=== PATIENT | male | born 1980 | race Caucasian/White ===

== ENCOUNTER 2021-07-18 23:02 | Emergency (ER) | payer MEDICAID ==
[~2021-07-18] VITALS: Ht 162.6 cm; Wt 60.0 kg
[2021-07-18 23:14] VITALS: BP 119/76
[2021-07-18] MEDS ORDERED: KETOROLAC 60MG/2ML VIAL IM ONE (23:45)
[2021-07-18] MEDS ORDERED: DIAZEPAM 2 MG TABLET PO ONE (23:45)
[2021-07-18] MEDS ORDERED: PREDNISONE 20MG TABLET PO ONE (23:45)
[2021-07-19] MEDS ORDERED: IBUP-2030 MT (01:52)
[2021-07-19] MEDS ORDERED: CYCL5TAB MT (01:52)
== END 2021-07-19 02:36 | disposition home or self-care (01) ==
LOC: ER 23:02
DX: S39.012A Strain of muscle, fascia and tendon of lower back, initial encounter (principal); X58.XXXA Exposure to other specified factors, initial encounter; Y93.89 Activity, other specified; Y92.89 Other specified places as the place of occurrence of the external cause; Y99.8 Other external cause status
CPT/HCPCS: 72100; 93005; 96372; 99283; J1885; J7512

== ENCOUNTER 2021-08-24 18:17 | Inpatient (IN) | payer MEDICAID, OTHER ==
[~2021-08-24] VITALS: Ht 165.1 cm; Wt 50.3 kg
[~2021-08-24 18:17] MED LIST: CYCL5TAB MT; IBUP-2030 MT
[2021-08-24] MEDS ORDERED: ACETAMINOPHEN 325MG TABLET PO STA (20:28)
[2021-08-24 21:26] LABS: BASOPHILS % 0.6 % (0.0-2.0); EOSINOPHILS % 1.5 % (0.0-5.0); LYMPHOCYTES % 32.7 % (20.0-50.0); MEAN CORPUSCULAR HEMOGLOBIN 31.5 pg (28.0-32.0); MEAN CORPUSCULAR VOLUME 90.8 fL (80.0-94.0); MEAN PLATELET VOLUME 8.2 fl (7.4-10.4); NEUTROPHILS % 59.2 % (40.0-76.0); PLATELET 131 x1000/uL (130-400); RED BLOOD CELL COUNT 2.22 mill/uL (4.7-6.1); RED CELL DISTRIBUTION WIDTH 14.4 % (11.6-14.6)
[2021-08-24 21:31] LABS: HEMATOCRIT. 20.2 % (42.0-52.0)
[2021-08-24 21:32] LABS: CHLORIDE 94 mEq/L (98-107)
[2021-08-24 22:22] LABS: CLARITY URINE CLEAR (CLEAR); COLOR URINE YELLOW (YELLOW); KETONES URINE NEGATIVE (NEGATIVE); LEUKOCYTE ESTERASE URINE 1+ (NEGATIVE); NITRITE URINE NEGATIVE (NEGATIVE); OCCULT BLOOD URINE 2+ (NEGATIVE); PROTEIN URINE 2+ (NEGATIVE); SPECIFIC GRAVITY URINE 1.011 (1.005-1.030); UROBILINOGEN URINE 0.2 E.U./dL (0.2-1.0)
[2021-08-25] VITALS (23 sets, daily range): BP systolic 99–121; BP diastolic 52–76
[2021-08-25] MEDS: ONDANSETRON HCL 4MG/2ML INJ IV PRN ×3 (04:17→21:55)
[2021-08-25] MEDS: SEVELAMER CARBONATE 800 MG TABLET PO SCH ×3 (06:34→18:23)
[2021-08-25] MEDS: FOLIC ACID/VITAMIN B COMP W-C TABLET PO SCH (08:39)
[2021-08-25] MEDS ORDERED: MORPHINE SULFATE 2 MG/ML CPJ (NOT FOR IM USE) IV PRN (09:15)
[2021-08-25] MEDS ORDERED: LORAZEPAM 2MG/ML CPJ IV PRN (09:15)
[2021-08-25] MEDS ORDERED: NALOXONE HCL 0.4MG/ML VIAL IV PRN (09:30)
[2021-08-25 09:49] LABS: BASOPHILS % 0.5 % (0.0-2.0); EOSINOPHILS % 1.5 % (0.0-5.0); HEMATOCRIT. 21.7 % (42.0-52.0); HEMOGLOBIN. 7.1 g/dL (14.0-18.0); LYMPHOCYTES % 35.8 % (20.0-50.0); MEAN CORPUSCULAR HEMOGLOBIN 31.1 pg (28.0-32.0); MEAN CORPUSCULAR VOLUME 94.3 fL (80.0-94.0); MEAN PLATELET VOLUME 8.1 fl (7.4-10.4); MONOCYTES % 6.1 % (2.0-8.0); NEUTROPHILS % 56.1 % (40.0-76.0); PLATELET 134 x1000/uL (130-400)
[2021-08-25] MEDS ORDERED: CEFAZOLIN 1000MG PREMIX 50 ML IV ONE ×2 (10:00→11:48)
[2021-08-25] MEDS ORDERED: MANNITOL 12.5G (25%) VIAL 50ML IV SCH (10:00)
[2021-08-25 10:02] LABS: CREATINE KINASE 63 IU/L (39-308)
[2021-08-25 10:39] LABS: PHOSPHORUS 11.3 mg/dL (2.5-4.9)
[2021-08-25] MEDS ORDERED: LIDOCAINE HCL 1% 30ML VIAL (10MG/ML) ONE (11:49)
[2021-08-25] MEDS ORDERED: HEPARIN 1000 UNITS/ML 10ML ONE (11:49)
[2021-08-25 12:02] LABS: INR 1.3; PARTIAL THROMBOPLASTIN TIME 26.8 sec (23.4-31.0); PROTHROMBIN TIME 13.4 sec (9.6-11.0)
[2021-08-25 12:26] LABS: TOTAL IRON BINDING CAPACITY 163 ug/dL (250-450)
[2021-08-25 13:30] LABS: HEPATITIS B SURFACE AB 7.1 mIU/mL
[2021-08-25] MEDS ORDERED: FENTANYL CITRATE/PF 50MCG/ML 2ML VIAL ONE (13:35)
[2021-08-25 13:41] LABS: HEPATITIS B SURFACE ANTIGEN NEGATIVE
[2021-08-25] MEDS ORDERED: FENTANYL CITRATE/PF 50MCG/ML 2ML VIAL IV ONE (14:00)
[2021-08-25] MEDS: HYDROCODONE/ACETAMINOPHEN 5/325MG TABLET PO PRN (15:58)
[2021-08-25 21:14] LABS: HEMATOCRIT 23.1 % (42.0-52.0); HEMOGLOBIN 8.1 g/dL (14.0-18.0)
[2021-08-25 21:36] LABS: INR 1.2; PROTHROMBIN TIME 12.7 sec (9.6-11.0)
[2021-08-26] VITALS (24 sets, daily range): BP systolic 96–121; BP diastolic 54–72
[2021-08-26 06:24] LABS: BASOPHILS % 0.6 % (0.0-2.0); EOSINOPHILS % 1.1 % (0.0-5.0); HEMATOCRIT. 22.3 % (42.0-52.0); HEMOGLOBIN. 7.7 g/dL (14.0-18.0); LYMPHOCYTES % 33.4 % (20.0-50.0); MEAN CORPUSCULAR HEMOGLOBIN 30.4 pg (28.0-32.0); MEAN CORPUSCULAR VOLUME 87.4 fL (80.0-94.0); MEAN PLATELET VOLUME 7.6 fl (7.4-10.4); MONOCYTES % 5.8 % (2.0-8.0); NEUTROPHILS % 59.1 % (40.0-76.0); PLATELET 118 x1000/uL (130-400); RED BLOOD CELL COUNT 2.55 mill/uL (4.7-6.1); RED CELL DISTRIBUTION WIDTH 14.9 % (11.6-14.6)
[2021-08-26] MEDS: SEVELAMER CARBONATE 800 MG TABLET PO SCH ×3 (07:07→17:27)
[2021-08-26] MEDS: ONDANSETRON HCL 4MG/2ML INJ IV PRN ×3 (08:26→21:04)
[2021-08-26] MEDS: FOLIC ACID/VITAMIN B COMP W-C TABLET PO SCH (08:26)
[2021-08-26 09:11] LABS: ANTI-NUCLEAR ANTIBODIES DIRECT Negative (Negative)
[2021-08-26] MEDS ORDERED: FENTANYL CITRATE/PF 50MCG/ML 2ML VIAL ONE (09:17)
[2021-08-26] MEDS ORDERED: LIDOCAINE HCL 1% 30ML VIAL (10MG/ML) ONE (09:18)
[2021-08-26] MEDS ORDERED: SODIUM BICARBONATE 4% (2.4MEQ) 5ML VIAL IV ONE (09:18)
[2021-08-26] MEDS ORDERED: FENTANYL CITRATE/PF 50MCG/ML 2ML VIAL IV ONE (10:15)
[2021-08-26] MEDS ORDERED: DIATR MEGLU/DIATRIZOATE SOLN 30ML PO SCH (13:00)
[2021-08-26] MEDS: HYDROCODONE/ACETAMINOPHEN 5/325MG TABLET PO PRN (13:12)
[2021-08-26 16:21] LABS: HEMATOCRIT 20.2 % (42.0-52.0)
[2021-08-27 00:02] VITALS: BP 100/60
[2021-08-27 04:00] VITALS: BP 95/60
[2021-08-27] MEDS: SEVELAMER CARBONATE 800 MG TABLET PO SCH ×3 (06:25→17:58)
[2021-08-27 06:43] LABS: BASOPHILS % 0.8 % (0.0-2.0); EOSINOPHILS % 1.7 % (0.0-5.0); HEMATOCRIT. 22.3 % (42.0-52.0); HEMOGLOBIN. 7.8 g/dL (14.0-18.0); LYMPHOCYTES % 32.3 % (20.0-50.0); MEAN CORPUSCULAR HEMOGLOBIN 30.5 pg (28.0-32.0); MEAN CORPUSCULAR VOLUME 86.8 fL (80.0-94.0); MEAN PLATELET VOLUME 8.1 fl (7.4-10.4); MONOCYTES % 6.9 % (2.0-8.0); NEUTROPHILS % 58.3 % (40.0-76.0); PLATELET 106 x1000/uL (130-400); RED BLOOD CELL COUNT 2.56 mill/uL (4.7-6.1); RED CELL DISTRIBUTION WIDTH 14.7 % (11.6-14.6)
[2021-08-27 08:00] VITALS: BP 102/55
[2021-08-27] MEDS: FOLIC ACID/VITAMIN B COMP W-C TABLET PO SCH (09:06)
[2021-08-27 12:00] VITALS: BP 109/64
[2021-08-27 13:07] LABS: ANTI-MYELOPEROXIDASE AB < 9.0 U/mL (0.0-9.0); ANTI-PROTEINASE 3 ABS < 3.5 U/mL (0.0-3.5); ATYPICAL P-ANCA <1:20 titer (Neg:<1:20); CYTOPLASMIC C-ANCA <1:20 titer (Neg:<1:20); PERINUCLEAR P-ANCA <1:20 titer (Neg:<1:20)
[2021-08-27 16:00] VITALS: BP 103/57
[2021-08-27 20:00] VITALS: BP 104/64
[2021-08-27] MEDS: EPOETIN ALFA-EPBX 10,000 UNIT/ML VIAL SUBCUT SCH (21:00)
[2021-08-27] MEDS ORDERED: EPOETIN ALFA 10000UNITS/ML VIAL SUBCUT SCH (21:00)
[2021-08-28] VITALS: BP 98/61
[2021-08-28 04:00] VITALS: BP 103/68
[2021-08-28] MEDS: SEVELAMER CARBONATE 800 MG TABLET PO SCH ×3 (06:38→17:35)
[2021-08-28 08:00] VITALS: BP 100/59
[2021-08-28] MEDS: FOLIC ACID/VITAMIN B COMP W-C TABLET PO SCH (08:26)
[2021-08-28] MEDS: ONDANSETRON HCL 4MG/2ML INJ IV PRN (09:11)
[2021-08-28 09:37] LABS: BASOPHILS % 0.8 % (0.0-2.0); EOSINOPHILS % 2.3 % (0.0-5.0); HEMATOCRIT. 23.2 % (42.0-52.0); LYMPHOCYTES % 28.8 % (20.0-50.0); MEAN CORPUSCULAR HEMOGLOBIN 30.3 pg (28.0-32.0); MEAN CORPUSCULAR VOLUME 87.7 fL (80.0-94.0); MONOCYTES % 7.3 % (2.0-8.0); NEUTROPHILS % 60.8 % (40.0-76.0); PLATELET 107 x1000/uL (130-400); RED BLOOD CELL COUNT 2.64 mill/uL (4.7-6.1); RED CELL DISTRIBUTION WIDTH 14.5 % (11.6-14.6)
[2021-08-28 12:00] VITALS: BP 119/73
[2021-08-28] MEDS: HYDROCODONE/ACETAMINOPHEN 5/325MG TABLET PO PRN (13:56)
[2021-08-28 16:00] VITALS: BP 100/51
[2021-08-28 17:48] LABS: HEMATOCRIT 23.1 % (42.0-52.0); HEMOGLOBIN 8.1 g/dL (14.0-18.0)
[2021-08-28 19:58] LABS: HEMATOCRIT 23.9 % (42.0-52.0); HEMOGLOBIN 8.3 g/dL (14.0-18.0)
[2021-08-28 20:00] VITALS: BP 105/63
[2021-08-29] VITALS: BP 111/63
[2021-08-29 04:00] VITALS: BP 115/60
[2021-08-29] MEDS: SEVELAMER CARBONATE 800 MG TABLET PO SCH ×3 (06:12→17:10)
[2021-08-29 06:56] LABS: EOSINOPHILS % 2.2 % (0.0-5.0); HEMATOCRIT. 22.1 % (42.0-52.0); HEMOGLOBIN. 7.8 g/dL (14.0-18.0); LYMPHOCYTES % 29.4 % (20.0-50.0); MEAN CORPUSCULAR HEMOGLOBIN 30.7 pg (28.0-32.0); MEAN CORPUSCULAR VOLUME 87.4 fL (80.0-94.0); MEAN PLATELET VOLUME 8.1 fl (7.4-10.4); MONOCYTES % 7.7 % (2.0-8.0); NEUTROPHILS % 59.7 % (40.0-76.0); PLATELET 111 x1000/uL (130-400); RED BLOOD CELL COUNT 2.52 mill/uL (4.7-6.1); RED CELL DISTRIBUTION WIDTH 14.3 % (11.6-14.6)
[2021-08-29 08:08] VITALS: BP 97/55
[2021-08-29] MEDS: FOLIC ACID/VITAMIN B COMP W-C TABLET PO SCH (09:51)
[2021-08-29 12:12] VITALS: BP 97/69
[2021-08-29] MEDS: ONDANSETRON HCL 4MG/2ML INJ IV PRN (13:22)
[2021-08-29 16:27] VITALS: BP 97/55
[2021-08-29 17:05] LABS: HEMATOCRIT 21.5 % (42.0-52.0); HEMOGLOBIN 7.4 g/dL (14.0-18.0)
[2021-08-29 20:00] VITALS: BP 90/51
[2021-08-29] MEDS: EPOETIN ALFA-EPBX 10,000 UNIT/ML VIAL SUBCUT SCH (21:29)
[2021-08-30] VITALS: BP 94/56
[2021-08-30 04:00] VITALS: BP 103/53
[2021-08-30] MEDS: SEVELAMER CARBONATE 800 MG TABLET PO SCH ×3 (06:11→16:55)
[2021-08-30] MEDS: FOLIC ACID/VITAMIN B COMP W-C TABLET PO SCH (08:18)
[2021-08-30 08:23] VITALS: BP 94/54
[2021-08-30 12:00] VITALS: BP 100/60
[2021-08-30 16:00] VITALS: BP 104/67
[2021-08-30 16:15] LABS: HEMATOCRIT 22.8 % (42.0-52.0)
[2021-08-30 20:00] VITALS: BP 102/59
[2021-08-31] VITALS: BP 100/60
[2021-08-31 04:00] VITALS: BP 95/55
[2021-08-31 06:10] LABS: BASOPHILS % 0.7 % (0.0-2.0); EOSINOPHILS % 1.9 % (0.0-5.0); HEMATOCRIT. 21.3 % (42.0-52.0); HEMOGLOBIN. 7.5 g/dL (14.0-18.0); LYMPHOCYTES % 34.5 % (20.0-50.0); MEAN CORPUSCULAR VOLUME 88.1 fL (80.0-94.0); MEAN PLATELET VOLUME 7.9 fl (7.4-10.4); MONOCYTES % 6.6 % (2.0-8.0); NEUTROPHILS % 56.3 % (40.0-76.0); PLATELET 111 x1000/uL (130-400); RED BLOOD CELL COUNT 2.42 mill/uL (4.7-6.1); RED CELL DISTRIBUTION WIDTH 14.1 % (11.6-14.6)
[2021-08-31 06:11] LABS: A/G RATIO 0.8 (0.7-1.7); ALBUMIN 3.3 g/dL (2.9-4.4); ALPHA-1-GLOBULIN 0.4 g/dL (0.0-0.4); ALPHA-2-GLOBULIN 2.8 g/dL (0.4-1.0); BETA GLOBULIN 0.7 g/dL (0.7-1.3); GAMMA GLOBULINS 0.3 g/dL (0.4-1.8); GLOBULIN TOTAL 4.2 g/dL (2.2-3.9); M-SPIKE 2.4 g/dL (Not Observed); TOTAL PROTEIN SERUM 7.5 g/dL (6.0-8.5)
[2021-08-31] MEDS: SEVELAMER CARBONATE 800 MG TABLET PO SCH ×3 (06:19→16:50)
[2021-08-31] MEDS ORDERED: LIDOCAINE HCL 1% 30ML VIAL (10MG/ML) ONE (07:26)
[2021-08-31] MEDS ORDERED: ACETAMINOPHEN 500MG TABLET ONE (07:33)
[2021-08-31] MEDS ORDERED: MIDAZOLAM HCL 2 MG/2 ML VIAL ONE (07:51)
[2021-08-31] MEDS ORDERED: LIDOCAINE HCL 1% 10 MG/ML 10ML VIAL ONE (07:52)
[2021-08-31] MEDS ORDERED: PROPOFOL 200MG/20ML VIAL IV ONE (07:52)
[2021-08-31] MEDS ORDERED: ONDANSETRON HCL 4MG/2ML INJ ONE (07:53)
[2021-08-31] MEDS ORDERED: METOCLOPRAMIDE HCL 10MG/2ML VIAL ONE (07:53)
[2021-08-31] MEDS ORDERED: FENTANYL CITRATE/PF 50MCG/ML 2ML VIAL ONE (07:55)
[2021-08-31] MEDS: FOLIC ACID/VITAMIN B COMP W-C TABLET PO SCH (09:00)
[2021-08-31 12:00] VITALS: BP 100/61
[2021-08-31 16:00] VITALS: BP 95/53
[2021-08-31 20:00] VITALS: BP 90/49
[2021-09-01] VITALS: BP 94/56
[2021-09-01 04:00] VITALS: BP 89/50
[2021-09-01] MEDS: SEVELAMER CARBONATE 800 MG TABLET PO SCH ×2 (07:10→13:43)
[2021-09-01 08:00] VITALS: BP 92/56
[2021-09-01] MEDS: FOLIC ACID/VITAMIN B COMP W-C TABLET PO SCH (09:00)
[2021-09-01] MEDS ORDERED: KETAMINE HCL 50 MG/ML 10ML ONE (11:07)
[2021-09-01] MEDS ORDERED: SEVE800T8 PO (11:08)
[2021-09-01] MEDS ORDERED: LIDOCAINE HCL/PF 1% 10 MG/ML 5ML VIAL ONE (11:10)
[2021-09-01] MEDS ORDERED: MIDAZOLAM HCL 2 MG/2 ML VIAL ONE (11:10)
[2021-09-01] MEDS ORDERED: PROPOFOL 200MG/20ML VIAL IV ONE (11:10)
[2021-09-01 15:32] VITALS: BP 92/56
[2021-09-01] MEDS ORDERED: INFLUENZA VACCINE 05/PF 0.5 ML SYRINGE IM ONE (16:30)
== END 2021-09-01 16:30 | disposition home or self-care (01) | DRG 470 ==
LOC: ER 18:17 → 7EST 23:27 → EDBEDREQTM 23:37 → EDBEDREQ 23:37 → ENRESERV 08-25 00:13 → 7EST 08-25 22:37
PROVIDERS: ADMIT Internal Medicine; ATTEND Internal Medicine
PROC: 30233N1 Transfusion of Nonautologous Red Blood Cells into Peripheral Vein, Percutaneous Approach (ICD-10-PCS; principal; 2021-08-25)
PROC: 5A1D70Z Performance of Urinary Filtration, Intermittent, Less than 6 Hours Per Day (ICD-10-PCS; 2021-08-25)
PROC: 0JH63XZ Insertion of Tunneled Vascular Access Device into Chest Subcutaneous Tissue and Fascia, Percutaneous Approach (ICD-10-PCS; 2021-08-25)
PROC: 02H633Z Insertion of Infusion Device into Right Atrium, Percutaneous Approach (ICD-10-PCS; 2021-08-25)
PROC: B548ZZA Ultrasonography of Superior Vena Cava, Guidance (ICD-10-PCS; 2021-08-25)
PROC: B5181ZA Fluoroscopy of Superior Vena Cava using Low Osmolar Contrast, Guidance (ICD-10-PCS; 2021-08-25)
PROC: 0TB13ZX Excision of Left Kidney, Percutaneous Approach, Diagnostic (ICD-10-PCS; 2021-08-26)
PROC: 5A1D70Z Performance of Urinary Filtration, Intermittent, Less than 6 Hours Per Day (ICD-10-PCS; 2021-08-28)
PROC: 5A1D70Z Performance of Urinary Filtration, Intermittent, Less than 6 Hours Per Day (ICD-10-PCS; 2021-08-31)
PROC: 07DQ3ZZ Extraction of Sternum Bone Marrow, Percutaneous Approach (ICD-10-PCS; 2021-08-31)
PROC: 07DR3ZX Extraction of Iliac Bone Marrow, Percutaneous Approach, Diagnostic (ICD-10-PCS; 2021-09-01)
PROC: 079T3ZX Drainage of Bone Marrow, Percutaneous Approach, Diagnostic (ICD-10-PCS; 2021-09-01)
DX: I12.0 Hypertensive chronic kidney disease with stage 5 chronic kidney disease or end stage renal disease (principal); N17.9 Acute kidney failure, unspecified; E44.0 Moderate protein-calorie malnutrition; D63.1 Anemia in chronic kidney disease; E83.39 Other disorders of phosphorus metabolism; E87.1 Hypo-osmolality and hyponatremia; E11.22 Type 2 diabetes mellitus with diabetic chronic kidney disease; C90.00 Multiple myeloma not having achieved remission; Z20.822 Contact with and (suspected) exposure to COVID-19; N18.6 End stage renal disease; E87.5 Hyperkalemia; E87.6 Hypokalemia; F17.200 Nicotine dependence, unspecified, uncomplicated; Z87.442 Personal history of urinary calculi; Z99.2 Dependence on renal dialysis; Z79.899 Other long term (current) drug therapy; Z68.1 Body mass index [BMI] 19.9 or less, adult; Y92.89 Other specified places as the place of occurrence of the external cause; S37.011A Minor contusion of right kidney, initial encounter
CPT/HCPCS: 36415; 36558; 38220; 38221; 74176; 76770; 76937; 76942; 77001; 80048; 80053; 81003; 82550; 83520; 83540; 83550; 84100; 84155; 84165; 85014; 85018; 85025; 85049; 85060; 85097; 85384; 86038; 86160; 86256; 86703; 86705; 86706; 86709; 86803; 86850; 86900; 86920; 87340; 87426; 88305; 88311; 88313; 88346; 88348; 90686; 99152; 99153; 99285; C1750; J0690; J0885; J1644; J2150; J2250; J2405; J2704; J2765; J3010; J3490; P9016; Q9963; U0003; U0005; G0500

== ENCOUNTER 2021-09-04 20:23 | Inpatient (IN) | payer MEDICAID, OTHER ==
[~2021-09-04] VITALS: Ht 160 cm; Wt 53.1 kg
[~2021-09-04 20:23] MED LIST changes: -CYCL5TAB MT; -IBUP-2030 MT; +SEVE800T8 PO
[2021-09-04 23:53] LABS: BASOPHILS % 0.9 % (0.0-2.0); EOSINOPHILS % 1.8 % (0.0-5.0); LYMPHOCYTES % 34.6 % (20.0-50.0); MEAN CORPUSCULAR HEMOGLOBIN 30.7 pg (28.0-32.0); MEAN CORPUSCULAR VOLUME 89.3 fL (80.0-94.0); MONOCYTES % 11.4 % (2.0-8.0); NEUTROPHILS % 51.3 % (40.0-76.0); PLATELET 127 x1000/uL (130-400); RED BLOOD CELL COUNT 1.92 mill/uL (4.7-6.1); RED CELL DISTRIBUTION WIDTH 14.4 % (11.6-14.6)
[2021-09-04 23:57] LABS: CHLORIDE 97 mEq/L (98-107); HEMOGLOBIN. 5.9 g/dL (14.0-18.0)
[2021-09-04 23:58] LABS: HEMATOCRIT. 17.1 % (42.0-52.0)
[2021-09-05] VITALS (10 sets, daily range): BP systolic 107–156; BP diastolic 52–77
[2021-09-05 00:01] LABS: ETHANOL BLOOD < 10 mg/dL
[2021-09-05 08:18] LABS: EOSINOPHILS % 1.9 % (0.0-5.0); LYMPHOCYTES % 35.9 % (20.0-50.0); MEAN CORPUSCULAR HEMOGLOBIN 30.5 pg (28.0-32.0); MEAN CORPUSCULAR VOLUME 89.9 fL (80.0-94.0); MONOCYTES % 12.2 % (2.0-8.0); PLATELET 111 x1000/uL (130-400); RED BLOOD CELL COUNT 2.25 mill/uL (4.7-6.1)
[2021-09-05 08:27] LABS: HEMATOCRIT. 20.2 % (42.0-52.0); HEMOGLOBIN. 6.9 g/dL (14.0-18.0)
[2021-09-05] MEDS ORDERED: ONDANSETRON HCL 4MG/2ML INJ IV PRN (08:45)
[2021-09-05] MEDS ORDERED: CLONIDINE 0.1MG TABLET PO PRN (08:45)
[2021-09-05] MEDS ORDERED: HYDROCODONE/ACETAMINOPHEN 5/325MG TABLET PO PRN (08:45)
[2021-09-05] MEDS ORDERED: MAGNESIUM/ALUMINUM HYDROXIDE/SIMETHICONE 30ML UDC PO PRN (08:45)
[2021-09-05] MEDS ORDERED: ACETAMINOPHEN 325MG TABLET PO PRN (08:45)
[2021-09-05] MEDS ORDERED: DEXTROSE 50% WATER 50ML SYRINGE IV PRN ×2 (08:45)
[2021-09-05] MEDS ORDERED: NALOXONE HCL 0.4MG/ML VIAL IV PRN (09:00)
[2021-09-05 09:37] LABS: TOTAL IRON BINDING CAPACITY 148 ug/dL (250-450)
[2021-09-05 11:30] LABS: CLARITY URINE CLEAR (CLEAR); COLOR URINE YELLOW (YELLOW); KETONES URINE NEGATIVE (NEGATIVE); LEUKOCYTE ESTERASE URINE TRACE (NEGATIVE); NITRITE URINE NEGATIVE (NEGATIVE); OCCULT BLOOD URINE TRACE (NEGATIVE); PH URINE 8.5 (4.5-8.0); PROTEIN URINE 1+ (NEGATIVE); SPECIFIC GRAVITY URINE 1.007 (1.005-1.030); UROBILINOGEN URINE 0.2 E.U./dL (0.2-1.0)
[2021-09-05 11:54] LABS: *AMPHETAMINES SCREEN URINE NEGATIVE (NEGATIVE); CANNABINOID URINE SCREEN NEGATIVE (NEGATIVE); PHENCYCLIDINE URINE SCREEN NEGATIVE (NEGATIVE)
[2021-09-05 11:55] LABS: *BARBITURATES SCREEN URINE NEGATIVE (NEGATIVE); *BENZODIAZEPINES SCREEN URINE NEGATIVE (NEGATIVE); *COCAINE SCREEN URINE NEGATIVE (NEGATIVE); METHADONE URINE SCREEN NEGATIVE (NEGATIVE); OPIATES URINE SCREEN NEGATIVE (NEGATIVE)
[2021-09-05] MEDS: BLOOD SUGAR DIAGNOSTIC STRIP TEST SCH ×2 (11:59→16:40)
[2021-09-05] MEDS: PANTOPRAZOLE SODIUM 40 MG/VIAL IV SCH (12:00)
[2021-09-05] MEDS: INSULIN LISPRO 100 UNITS/ML SUBCUT SCH ×2 (12:00→17:10)
[2021-09-05 20:22] LABS: HEMATOCRIT 25.7 % (42.0-52.0); HEMOGLOBIN 8.8 g/dL (14.0-18.0)
[2021-09-05 20:27] LABS: INR 1.2; PROTHROMBIN TIME 12.5 sec (9.6-11.0)
[2021-09-06] VITALS: BP 104/63
[2021-09-06 04:00] VITALS: BP 100/61
[2021-09-06 07:50] LABS: BASOPHILS % 0.8 % (0.0-2.0); EOSINOPHILS % 1.5 % (0.0-5.0); HEMATOCRIT. 25.3 % (42.0-52.0); HEMOGLOBIN. 8.8 g/dL (14.0-18.0); LYMPHOCYTES % 38.3 % (20.0-50.0); MEAN CORPUSCULAR HEMOGLOBIN 31.1 pg (28.0-32.0); MEAN PLATELET VOLUME 8.3 fl (7.4-10.4); MONOCYTES % 11.7 % (2.0-8.0); NEUTROPHILS % 47.7 % (40.0-76.0); PLATELET 130 x1000/uL (130-400); RED BLOOD CELL COUNT 2.84 mill/uL (4.7-6.1); RED CELL DISTRIBUTION WIDTH 14.4 % (11.6-14.6)
[2021-09-06 08:00] VITALS: BP 113/68
[2021-09-06 08:06] LABS: CHLORIDE 101 mEq/L (98-107)
[2021-09-06 08:18] LABS: AMYLASE 76 IU/L (25-115)
[2021-09-06 08:20] LABS: PHOSPHORUS 4.4 mg/dL (2.5-4.9)
[2021-09-06] MEDS: PANTOPRAZOLE SODIUM 40 MG/VIAL IV SCH (08:54)
[2021-09-06 12:00] VITALS: BP 110/62
[2021-09-06] MEDS: DOCUSATE SODIUM 100MG CAPSULE PO PRN (15:36)
[2021-09-06 16:00] VITALS: BP 112/61
[2021-09-06 20:00] VITALS: BP 113/77
[2021-09-07] VITALS: BP 110/71
[2021-09-07 04:00] VITALS: BP 109/72
[2021-09-07 06:27] LABS: BASOPHILS % 1.3 % (0.0-2.0); EOSINOPHILS % 1.7 % (0.0-5.0); HEMATOCRIT. 22.2 % (42.0-52.0); HEMOGLOBIN. 7.7 g/dL (14.0-18.0); LYMPHOCYTES % 39.4 % (20.0-50.0); MEAN CORPUSCULAR HEMOGLOBIN 31.2 pg (28.0-32.0); MEAN CORPUSCULAR VOLUME 89.5 fL (80.0-94.0); MEAN PLATELET VOLUME 8.4 fl (7.4-10.4); MONOCYTES % 12.3 % (2.0-8.0); NEUTROPHILS % 45.3 % (40.0-76.0); PLATELET 104 x1000/uL (130-400); RED BLOOD CELL COUNT 2.48 mill/uL (4.7-6.1); RED CELL DISTRIBUTION WIDTH 14.5 % (11.6-14.6)
[2021-09-07 08:00] VITALS: BP 130/83
[2021-09-07] MEDS: PANTOPRAZOLE SODIUM 40 MG/VIAL IV SCH (09:55)
[2021-09-07] MEDS: DOCUSATE SODIUM 100MG CAPSULE PO PRN (10:02)
[2021-09-07 12:00] VITALS: BP 114/68
[2021-09-07 14:56] VITALS: BP 139/50
== END 2021-09-07 16:00 | disposition home or self-care (01) | DRG 470 ==
LOC: ER 20:23 → 7EST 09-05 03:04 → EDBEDREQTM 09-05 03:19 → ENRESERV 09-05 03:46
PROVIDERS: ADMIT Internal Medicine; ATTEND Internal Medicine
PROC: 30233N1 Transfusion of Nonautologous Red Blood Cells into Peripheral Vein, Percutaneous Approach (ICD-10-PCS; principal; 2021-09-05)
PROC: 5A1D70Z Performance of Urinary Filtration, Intermittent, Less than 6 Hours Per Day (ICD-10-PCS; 2021-09-05)
PROC: 5A1D70Z Performance of Urinary Filtration, Intermittent, Less than 6 Hours Per Day (ICD-10-PCS; 2021-09-07)
DX: N18.6 End stage renal disease (principal); K85.90 Acute pancreatitis without necrosis or infection, unspecified; J90 Pleural effusion, not elsewhere classified; E44.0 Moderate protein-calorie malnutrition; C90.00 Multiple myeloma not having achieved remission; D63.1 Anemia in chronic kidney disease; K82.8 Other specified diseases of gallbladder; M43.8X6 Other specified deforming dorsopathies, lumbar region; N28.1 Cyst of kidney, acquired; N17.9 Acute kidney failure, unspecified; R74.8 Abnormal levels of other serum enzymes; Z20.822 Contact with and (suspected) exposure to COVID-19; Z87.442 Personal history of urinary calculi; Z91.15 Patient's noncompliance with renal dialysis; Z91.19 Patient's noncompliance with other medical treatment and regimen; Z99.2 Dependence on renal dialysis; Z79.899 Other long term (current) drug therapy; Z68.20 Body mass index [BMI] 20.0-20.9, adult
CPT/HCPCS: 36415; 76700; 80048; 80053; 80076; 80305; 80320; 81003; 82150; 82607; 82728; 82746; 82962; 83036; 83540; 83550; 83735; 84100; 85014; 85018; 85025; 85044; 85049; 85384; 86850; 86900; 86920; 87340; 93005; 93970; 99291; C9113; P9016; G0480

== ENCOUNTER 2021-10-10 17:04 | Inpatient (IN) | payer MEDICAID ==
[~2021-10-10] VITALS: Ht 160 cm; Wt 53.7 kg
[2021-10-10 20:06] LABS: BASOPHILS % 1.1 % (0.0-2.0); EOSINOPHILS % 5.3 % (0.0-5.0); LYMPHOCYTES % 28.5 % (20.0-50.0); MEAN CORPUSCULAR HEMOGLOBIN 31.5 pg (28.0-32.0); MEAN CORPUSCULAR VOLUME 92.2 fL (80.0-94.0); MEAN PLATELET VOLUME 7.4 fl (7.4-10.4); MONOCYTES % 8.1 % (2.0-8.0); PLATELET 144 x1000/uL (130-400); RED BLOOD CELL COUNT 2.12 mill/uL (4.7-6.1); RED CELL DISTRIBUTION WIDTH 15.8 % (11.6-14.6)
[2021-10-10 20:14] LABS: HEMATOCRIT. 19.6 % (42.0-52.0); HEMOGLOBIN. 6.7 g/dL (14.0-18.0)
[2021-10-10 20:16] LABS: PHOSPHORUS 4.3 mg/dL (2.5-4.9)
[2021-10-10] MEDS ORDERED: ONDANSETRON HCL 4MG/2ML INJ IV PRN (23:30)
[2021-10-10] MEDS ORDERED: ACETAMINOPHEN 650MG/20.3ML UDC GT PRN (23:30)
[2021-10-11 05:33] LABS: CHLORIDE 104 mEq/L (98-107)
[2021-10-11 05:37] LABS: BASOPHILS % 1.2 % (0.0-2.0); EOSINOPHILS % 5.8 % (0.0-5.0); HEMATOCRIT. 21.7 % (42.0-52.0); HEMOGLOBIN. 7.3 g/dL (14.0-18.0); LYMPHOCYTES % 25.9 % (20.0-50.0); MEAN CORPUSCULAR HEMOGLOBIN 30.3 pg (28.0-32.0); MEAN CORPUSCULAR VOLUME 90.3 fL (80.0-94.0); MEAN PLATELET VOLUME 7.8 fl (7.4-10.4); NEUTROPHILS % 58.1 % (40.0-76.0); PLATELET 128 x1000/uL (130-400); RED CELL DISTRIBUTION WIDTH 16.1 % (11.6-14.6)
[2021-10-11 05:41] LABS: LDL CHOLESTEROL 45 mg/dL (5-100)
[2021-10-11 05:42] LABS: HDL CHOLESTEROL 40 mg/dL (40-59)
[2021-10-11 09:30] VITALS: BP 154/85
[2021-10-11 09:45] VITALS: BP 154/85
[2021-10-11 12:00] VITALS: BP 170/102
[2021-10-11 12:58] LABS: HEPATITIS B SURFACE ANTIGEN NEGATIVE
[2021-10-11 16:00] VITALS: BP 143/92
[2021-10-11 20:00] VITALS: BP 144/90
[2021-10-12] VITALS: BP 149/95
[2021-10-12 04:00] VITALS: BP 132/82
[2021-10-12 08:24] VITALS: BP 98/69
[2021-10-12 11:07] LABS: HEMATOCRIT. 22.7 % (42.0-52.0); HEMOGLOBIN. 8.1 g/dL (14.0-18.0); MEAN CORPUSCULAR HEMOGLOBIN 31.8 pg (28.0-32.0); MEAN CORPUSCULAR VOLUME 89.4 fL (80.0-94.0); MEAN PLATELET VOLUME 7.6 fl (7.4-10.4); PLATELET 144 x1000/uL (130-400); RED BLOOD CELL COUNT 2.53 mill/uL (4.7-6.1); RED CELL DISTRIBUTION WIDTH 16.2 % (11.6-14.6)
[2021-10-12 12:16] VITALS: BP 153/87
[2021-10-12 13:17] LABS: PLATELET ESTIMATE NORMAL
[2021-10-12 14:00] VITALS: BP 153/87
== END 2021-10-12 17:00 | disposition home or self-care (01) | DRG 691 ==
LOC: ER 17:04 → 6WST 21:46 → EDBEDREQTM 21:48 → EDBEDREQ 21:48 → UNDOADMIN 10-11 08:35 → 6WST 10-11 08:35 → UNDODISIN 10-12 17:00
PROVIDERS: ADMIT Family Medicine; ATTEND Family Medicine
PROC: 30233N1 Transfusion of Nonautologous Red Blood Cells into Peripheral Vein, Percutaneous Approach (ICD-10-PCS; principal; 2021-10-10)
PROC: 5A1D70Z Performance of Urinary Filtration, Intermittent, Less than 6 Hours Per Day (ICD-10-PCS; 2021-10-11)
DX: C90.00 Multiple myeloma not having achieved remission (principal); D61.818 Other pancytopenia; E43 Unspecified severe protein-calorie malnutrition; I12.0 Hypertensive chronic kidney disease with stage 5 chronic kidney disease or end stage renal disease; N18.6 End stage renal disease; D63.0 Anemia in neoplastic disease; E87.5 Hyperkalemia; Z99.2 Dependence on renal dialysis; Z68.21 Body mass index [BMI] 21.0-21.9, adult
CPT/HCPCS: 36415; 80048; 80053; 80061; 80069; 85025; 86705; 86709; 86803; 86850; 86900; 86920; 87340; 93005; 99291; P9016

== ENCOUNTER 2021-12-12 14:45 | Inpatient (IN) | payer MEDICAID, OTHER ==
[~2021-12-12] VITALS: Ht 162.6 cm; Wt 52.2 kg
[~2021-12-12 14:45] MED LIST changes: +CALC667C PO; +IBUP-2030 PO; +NEPVIT PO
[2021-12-12] MEDS ORDERED: MORPHINE SULFATE 4 MG/ML CPJ (NOT FOR IM USE) IV STA (15:33)
[2021-12-12] MEDS ORDERED: ONDANSETRON HCL 4MG/2ML INJ IV STA (15:33)
[2021-12-12 15:37] LABS: BASOPHILS % 0.6 % (0.0-2.0); EOSINOPHILS % 0.5 % (0.0-5.0); HEMATOCRIT. 22.2 % (42.0-52.0); HEMOGLOBIN. 7.9 g/dL (14.0-18.0); LYMPHOCYTES % 12.2 % (20.0-50.0); MEAN CORPUSCULAR HEMOGLOBIN 31.9 pg (28.0-32.0); MEAN CORPUSCULAR VOLUME 90.1 fL (80.0-94.0); MEAN PLATELET VOLUME 9.3 fl (7.4-10.4); MONOCYTES % 7.7 % (2.0-8.0); PLATELET 107 x1000/uL (130-400); RED BLOOD CELL COUNT 2.46 mill/uL (4.7-6.1); RED CELL DISTRIBUTION WIDTH 16.7 % (11.6-14.6)
[2021-12-12 15:40] LABS: CHLORIDE 102 mEq/L (98-107)
[2021-12-12 15:42] LABS: INR 1.3; PROTHROMBIN TIME 13.4 sec (9.6-11.0)
[2021-12-12] MEDS ORDERED: ASPIRIN 81MG TABLET PO ONE (18:15)
[2021-12-12] MEDS ORDERED: IOHEXOL-300 100 ML BOTTLE ONE (20:03)
[2021-12-12] MEDS ORDERED: ONDANSETRON HCL 4MG/2ML INJ IV PRN (20:45)
[2021-12-12 21:05] LABS: TOTAL IRON BINDING CAPACITY 220 ug/dL (250-450)
[2021-12-12] MEDS ORDERED: CEFTRIAXONE 1 G PREMIX 50 ML IV SCH (22:00)
[2021-12-12] MEDS: FUROSEMIDE 40MG/4ML VIAL IV SCH (22:15)
[2021-12-12] MEDS: MORPHINE SULFATE 2 MG/ML CPJ (NOT FOR IM USE) IV PRN (22:29)
[2021-12-13 02:26] VITALS: BP 170/104
[2021-12-13] MEDS: MORPHINE SULFATE 2 MG/ML CPJ (NOT FOR IM USE) IV PRN ×4 (03:14→21:35)
[2021-12-13] MEDS ORDERED: HYDR-4001 PO (04:12)
[2021-12-13] MEDS ORDERED: DEXA4TAB PO (04:12)
[2021-12-13 08:00] VITALS: BP 157/101
[2021-12-13 08:04] LABS: BASOPHILS % 0.6 % (0.0-2.0); EOSINOPHILS % 0.7 % (0.0-5.0); HEMATOCRIT. 21.8 % (42.0-52.0); HEMOGLOBIN. 7.4 g/dL (14.0-18.0); LYMPHOCYTES % 17.4 % (20.0-50.0); MEAN CORPUSCULAR HEMOGLOBIN 30.9 pg (28.0-32.0); MEAN CORPUSCULAR VOLUME 90.6 fL (80.0-94.0); MEAN PLATELET VOLUME 8.5 fl (7.4-10.4); MONOCYTES % 10.1 % (2.0-8.0); NEUTROPHILS % 71.2 % (40.0-76.0); PLATELET 99 x1000/uL (130-400); RED BLOOD CELL COUNT 2.41 mill/uL (4.7-6.1); RED CELL DISTRIBUTION WIDTH 16.5 % (11.6-14.6)
[2021-12-13 08:13] LABS: CLARITY URINE CLEAR (CLEAR); COLOR URINE YELLOW (YELLOW); KETONES URINE NEGATIVE (NEGATIVE); LEUKOCYTE ESTERASE URINE NEGATIVE (NEGATIVE); NITRITE URINE NEGATIVE (NEGATIVE); OCCULT BLOOD URINE TRACE (NEGATIVE); PH URINE 8.5 (4.5-8.0); PROTEIN URINE 1+ (NEGATIVE); SPECIFIC GRAVITY URINE 1.009 (1.005-1.030); UROBILINOGEN URINE 0.2 E.U./dL (0.2-1.0)
[2021-12-13 08:54] LABS: CHLORIDE 103 mEq/L (98-107)
[2021-12-13] MEDS ORDERED: NALOXONE HCL 0.4MG/ML VIAL IV PRN (09:00)
[2021-12-13] MEDS: PANTOPRAZOLE SODIUM 40 MG/VIAL IV SCH (09:09)
[2021-12-13 09:10] LABS: PHOSPHORUS 3.3 mg/dL (2.5-4.9)
[2021-12-13 09:11] LABS: LDL CHOLESTEROL 65 mg/dL (5-100)
[2021-12-13] MEDS: FUROSEMIDE 40MG/4ML VIAL IV SCH (09:11)
[2021-12-13] MEDS: TAMSULOSIN HCL 0.4MG SR CAPSULE PO SCH (09:11)
[2021-12-13 09:12] LABS: HDL CHOLESTEROL 37 mg/dL (40-59); T4 FREE 1.22 ng/dL (0.76-1.46)
[2021-12-13 09:26] LABS: *AMPHETAMINES SCREEN URINE NEGATIVE (NEGATIVE); *BARBITURATES SCREEN URINE NEGATIVE (NEGATIVE)
[2021-12-13 09:27] LABS: *BENZODIAZEPINES SCREEN URINE NEGATIVE (NEGATIVE); *COCAINE SCREEN URINE NEGATIVE (NEGATIVE); CANNABINOID URINE SCREEN NEGATIVE (NEGATIVE); METHADONE URINE SCREEN NEGATIVE (NEGATIVE); OPIATES URINE SCREEN NEGATIVE (NEGATIVE); PHENCYCLIDINE URINE SCREEN NEGATIVE (NEGATIVE)
[2021-12-13] MEDS: LIDOCAINE 5% PATCH TOP SCH (10:08)
[2021-12-13] MEDS: AMLODIPINE 2.5MG TABLET PO SCH ×2 (11:36→20:35)
[2021-12-13 12:00] VITALS: BP 148/83
[2021-12-13 16:00] VITALS: BP 138/79
[2021-12-13 20:00] VITALS: BP 155/95
[2021-12-13] MEDS: CEFTRIAXONE 1,000 MG in DEXTROSE 5% WATER 50 ML IV SCH (20:35)
[2021-12-14] VITALS (9 sets, daily range): BP systolic 112–170; BP diastolic 67–99
[2021-12-14] MEDS: MORPHINE SULFATE 2 MG/ML CPJ (NOT FOR IM USE) IV PRN ×4 (01:51→21:00)
[2021-12-14 05:31] LABS: BASOPHILS % 1.3 % (0.0-2.0); EOSINOPHILS % 3.1 % (0.0-5.0); MEAN CORPUSCULAR VOLUME 89.9 fL (80.0-94.0); MEAN PLATELET VOLUME 8.4 fl (7.4-10.4); MONOCYTES % 12.4 % (2.0-8.0); NEUTROPHILS % 59.2 % (40.0-76.0); PLATELET 92 x1000/uL (130-400); RED BLOOD CELL COUNT 2.22 mill/uL (4.7-6.1); RED CELL DISTRIBUTION WIDTH 16.9 % (11.6-14.6)
[2021-12-14 06:20] LABS: PHOSPHORUS 5.1 mg/dL (2.5-4.9)
[2021-12-14 06:39] LABS: HEMOGLOBIN. 6.9 g/dL (14.0-18.0)
[2021-12-14] MEDS: LIDOCAINE 5% PATCH TOP SCH (08:52)
[2021-12-14] MEDS: TAMSULOSIN HCL 0.4MG SR CAPSULE PO SCH ×2 (08:52→08:55)
[2021-12-14] MEDS: PANTOPRAZOLE SODIUM 40 MG/VIAL IV SCH (08:52)
[2021-12-14] MEDS: AMLODIPINE 2.5MG TABLET PO SCH ×2 (08:52→21:00)
[2021-12-14] MEDS: CEFTRIAXONE 1,000 MG in DEXTROSE 5% WATER 50 ML IV SCH (21:00)
[2021-12-14 21:32] LABS: HEMATOCRIT 25.9 % (42.0-52.0)
[2021-12-14 21:40] LABS: INR 1.3
[2021-12-14 21:57] LABS: TOTAL IRON BINDING CAPACITY 188 ug/dL (250-450)
[2021-12-15] VITALS: BP 146/94
[2021-12-15] MEDS: MORPHINE SULFATE 2 MG/ML CPJ (NOT FOR IM USE) IV PRN ×5 (01:32→22:02)
[2021-12-15 04:00] VITALS: BP 151/96
[2021-12-15 08:00] VITALS: BP 153/95
[2021-12-15] MEDS: TAMSULOSIN HCL 0.4MG SR CAPSULE PO SCH (09:00)
[2021-12-15] MEDS: PANTOPRAZOLE SODIUM 40 MG/VIAL IV SCH (09:13)
[2021-12-15] MEDS: LIDOCAINE 5% PATCH TOP SCH (09:14)
[2021-12-15] MEDS: AMLODIPINE 2.5MG TABLET PO SCH (09:14)
[2021-12-15] MEDS ORDERED: METHOCARBAMOL 500MG TABLET PO PRN (09:45)
[2021-12-15] MEDS ORDERED: HYDROCODONE/ACETAMINOPHEN 10/325MG TABLET PO PRN (09:45)
[2021-12-15 12:00] VITALS: BP 146/91
[2021-12-15 16:00] VITALS: BP 150/96
[2021-12-15] MEDS: POLYETHYLENE GLYCOL 3350 (17GM) 1 DOSE PACK PO SCH (17:59)
[2021-12-15 20:00] VITALS: BP 154/91
[2021-12-15] MEDS: AMLODIPINE 5MG TABLET PO SCH (22:02)
[2021-12-15] MEDS: CEFTRIAXONE 1,000 MG in DEXTROSE 5% WATER 50 ML IV SCH (22:02)
[2021-12-16] VITALS: BP 134/83
[2021-12-16] MEDS: MORPHINE SULFATE 2 MG/ML CPJ (NOT FOR IM USE) IV PRN ×5 (02:08→23:49)
[2021-12-16 04:00] VITALS: BP 137/89
[2021-12-16 07:28] LABS: BASOPHILS % 0.8 % (0.0-2.0); EOSINOPHILS % 4.2 % (0.0-5.0); HEMATOCRIT. 25.6 % (42.0-52.0); LYMPHOCYTES % 28.5 % (20.0-50.0); MEAN CORPUSCULAR HEMOGLOBIN 30.6 pg (28.0-32.0); MEAN CORPUSCULAR VOLUME 89.9 fL (80.0-94.0); MEAN PLATELET VOLUME 8.2 fl (7.4-10.4); MONOCYTES % 9.2 % (2.0-8.0); NEUTROPHILS % 57.3 % (40.0-76.0); PLATELET 105 x1000/uL (130-400); RED BLOOD CELL COUNT 2.85 mill/uL (4.7-6.1); RED CELL DISTRIBUTION WIDTH 16.8 % (11.6-14.6)
[2021-12-16 07:42] LABS: HEMOGLOBIN. 8.7 g/dL (14.0-18.0)
[2021-12-16 08:00] VITALS: BP 142/89
[2021-12-16] MEDS: POLYETHYLENE GLYCOL 3350 (17GM) 1 DOSE PACK PO SCH (08:57)
[2021-12-16] MEDS: PANTOPRAZOLE SODIUM 40 MG/VIAL IV SCH (08:57)
[2021-12-16] MEDS: AMLODIPINE 5MG TABLET PO SCH ×2 (08:58→21:36)
[2021-12-16] MEDS: TAMSULOSIN HCL 0.4MG SR CAPSULE PO SCH (08:58)
[2021-12-16] MEDS: LIDOCAINE 5% PATCH TOP SCH (08:59)
[2021-12-16 16:00] VITALS: BP 165/102
[2021-12-16 20:00] VITALS: BP 154/98
[2021-12-16] MEDS: CEFTRIAXONE 1,000 MG in DEXTROSE 5% WATER 50 ML IV SCH (21:36)
[2021-12-17] VITALS (7 sets, daily range): BP systolic 132–160; BP diastolic 77–97
[2021-12-17] MEDS: PANTOPRAZOLE SODIUM 40 MG/VIAL IV SCH (09:09)
[2021-12-17] MEDS: LIDOCAINE 5% PATCH TOP SCH (09:09)
[2021-12-17] MEDS: AMLODIPINE 5MG TABLET PO SCH (09:10)
[2021-12-17] MEDS: POLYETHYLENE GLYCOL 3350 (17GM) 1 DOSE PACK PO SCH (09:10)
[2021-12-17] MEDS: TAMSULOSIN HCL 0.4MG SR CAPSULE PO SCH (09:10)
[2021-12-17] MEDS: MORPHINE SULFATE 2 MG/ML CPJ (NOT FOR IM USE) IV PRN ×2 (10:17→20:31)
[2021-12-17] MEDS ORDERED: HYDR-4009 MT (11:47)
[2021-12-17] MEDS ORDERED: NALO4SPR BOTHNSTRLS (11:47)
[2021-12-17] MEDS ORDERED: METH-773 PO (11:47)
[2021-12-17] MEDS ORDERED: TAMS-11 PO (11:47)
[2021-12-17] MEDS ORDERED: AMLO5TAB88 PO (11:47)
[2021-12-17] MEDS ORDERED: LIDO700A30 TOP (11:47)
[2021-12-17] MEDS ORDERED: TRAM50TA3 MT (11:47)
[2021-12-17] MEDS ORDERED: PANT40TA51 MT (11:47)
[2021-12-17] MEDS ORDERED: MORPHINE SULFATE 15MG TABLET SR PO SCH (12:30)
[2021-12-17] MEDS ORDERED: MORPHINE SULFATE 4 MG/ML CPJ (NOT FOR IM USE) IV PRN (21:15)
[2021-12-17 21:54] LABS: HEPATITIS B SURFACE ANTIGEN NEGATIVE
== END 2021-12-17 20:33 | disposition home or self-care (01) | DRG 691 ==
LOC: ER 14:45 → 5WST 18:02 → ENRESERV 22:55
PROVIDERS: ADMIT Internal Medicine; ATTEND Internal Medicine
PROC: 30233N1 Transfusion of Nonautologous Red Blood Cells into Peripheral Vein, Percutaneous Approach (ICD-10-PCS; principal; 2021-12-14)
PROC: 5A1D70Z Performance of Urinary Filtration, Intermittent, Less than 6 Hours Per Day (ICD-10-PCS; 2021-12-14)
PROC: 5A1D70Z Performance of Urinary Filtration, Intermittent, Less than 6 Hours Per Day (ICD-10-PCS; 2021-12-16)
DX: C90.00 Multiple myeloma not having achieved remission (principal); I13.2 Hypertensive heart and chronic kidney disease with heart failure and with stage 5 chronic kidney disease, or end stage renal disease; K56.600 Partial intestinal obstruction, unspecified as to cause; C79.51 Secondary malignant neoplasm of bone; I27.20 Pulmonary hypertension, unspecified; M48.56XA Collapsed vertebra, not elsewhere classified, lumbar region, initial encounter for fracture; I31.3 Pericardial effusion (noninflammatory); N18.6 End stage renal disease; R16.0 Hepatomegaly, not elsewhere classified; K57.30 Diverticulosis of large intestine without perforation or abscess without bleeding; E11.22 Type 2 diabetes mellitus with diabetic chronic kidney disease; D64.9 Anemia, unspecified; E78.5 Hyperlipidemia, unspecified; I50.9 Heart failure, unspecified; N32.89 Other specified disorders of bladder; Z20.822 Contact with and (suspected) exposure to COVID-19; R59.0 Localized enlarged lymph nodes; Z82.49 Family history of ischemic heart disease and other diseases of the circulatory system; Z99.2 Dependence on renal dialysis; Z51.11 Encounter for antineoplastic chemotherapy; Z79.899 Other long term (current) drug therapy; Z79.1 Long term (current) use of non-steroidal anti-inflammatories (NSAID); N40.1 Benign prostatic hyperplasia with lower urinary tract symptoms; N13.8 Other obstructive and reflux uropathy
CPT/HCPCS: 36415; 71045; 71260; 72146; 72148; 74018; 74177; 80048; 80053; 80061; 80076; 80305; 81003; 82378; 83540; 83550; 83735; 84100; 84145; 84153; 84439; 84443; 84484; 85014; 85018; 85025; 85044; 85049; 85384; 86301; 86705; 86709; 86803; 86850; 86900; 86920; 87340; 87426; 93005; 93306; 93880; 97162; 99285; C9113; J0696; J1940; J2270; J2405; J7060; P9016; Q9967; G0103